=== PATIENT | male | born 2000 | race Caucasian/White ===

== ENCOUNTER 2018-11-13 07:30 | Emergency (ER) | payer MEDICAID ==
[2018-11-13] MEDS ORDERED: Albuterol-Ipratrop 3 mg / 0.5 (3 ml) UD ONE ×2 (07:43)
--- NOTE | 2018-11-13 07:49 | C.PDOC ---
History Of Present Illness 18 years old male with PMHx of asthma presents to ED for complaints of shortness of breath associated with coughing, wheezing, and subjective fever that began 4 days ago. Denies nausea, vomiting, or diarrhea. Patient also denies prior hospitalization due to asthma. Patient also reports a table fell on his wrist and knee while working 2 days ago and currently complaints of pain to left wrist and knee. Denies injuries, pain with movement, or any other complaints. Time Seen by Provider: 11/13/18 07:39 Chief Complaint (Nursing): Shortness Of Breath History Per: Patient History/Exam Limitations: no limitations Onset/Duration Of Symptoms: Days (4) Current Symptoms Are (Timing): Still Present Current Respiratory Medications: See Home Med List Associated Symptoms: Fever. denies: Chills Recent travel outside of the [place]: No Past Medical History Reviewed: Historical Data, Nursing Documentation, Vital Signs Vital Signs: Last Vital Signs Temp 98.5 F 11/13/18 07:37 Pulse 97 H 11/13/18 07:37 Resp 20 11/13/18 07:37 BP 111/75 11/13/18 07:37 Pulse Ox 100 11/13/18 07:37 - Medical History PMH: Asthma Family History: States: No Known Family Hx - Social History Hx Tobacco Use: No Hx Alcohol Use: Yes Hx Substance Use: No - Immunization History Hx Influenza Vaccination: No Review Of Systems Except As Marked, All Systems Reviewed And Found Negative. Constitutional: Positive for: Fever. Negative for: Chills Respiratory: Positive for: Cough, Shortness of Breath, Wheezing Gastrointestinal: Negative for: Nausea, Vomiting, Diarrhea Musculoskeletal: Positive for: Other (Wrist and knee pain ) Skin: Negative for: Rash Neurological: Negative for: Weakness, Numbness Physical Exam - Physical Exam Appears: Non-toxic, No Acute Distress Skin: Normal Color, Warm, Dry, No Rash Head: Atraumatic, Normacephalic Eye(s): bilateral: Normal Inspection, PERRL, EOMI Oral Mucosa: Moist Throat: No Erythema, No Exudate Neck: Normal ROM, Supple Chest: Symmetrical, No Tenderness Cardiovascular: Rhythm Regular, No Friction Rub, No Murmur Respiratory: No Rales, No Rhonchi, Wheezing (Bilateral; left greater than right ) Gastrointestinal/Abdominal: Normal Exam, Soft, No Tenderness Back: Normal Inspection, No CVA Tenderness Extremity: Normal ROM (Full ROM of wrist and knee ), No Tenderness, No Deformity, No Swelling Extremity: Bilateral: Atraumatic, Normal Color And Temperature, Normal ROM Pulses: Left Radial: Normal, Right Radial: Normal Neurological/Psych: Oriented x3, Normal Speech, Normal Motor, Normal Sensation Gait: Steady ED Course And Treatment - Laboratory Results Result Diagrams: 11/13/18 08:16 11/13/18 08:16 O2 Sat by Pulse Oximetry: 100 (RA) Pulse Ox Interpretation: Normal - Other Rad CXR X-Ray: Viewed By Me, Read By Radiologist Interpretation: Date of service: 11/13/2018. HISTORY: SOB. COMPARISON: Comparison is made with 08/24/2013. TECHNIQUE: Chest PA and lateral views. FINDINGS: LUNGS: No active pulmonary disease. PLEURA: No significant pleural effusion identified. No pneumothorax apparent. CARDIOVASCULAR: No aortic atherosclerotic calcification present. Normal cardiac size. No pulmonary vascular congestion. OSSEOUS STRUCTURES: No significant abnormalities. VISUALIZED UPPER ABDOMEN: Normal. OTHER FINDINGS: None. IMPRESSION: No active disease. Wrist X-Ray X-Ray: Viewed By Me, Read By Radiologist Interpretation: Date of service: 11/13/2018. PROCEDURE: Left Wrist Radiographs. . HISTORY: wrist injury. COMPARISON: None. TECHNIQUE: 4 v iews obtained. FINDINGS: BONES: Normal. No fracture. JOINTS: Normal. No dislocation. SOFT TISSUES: Normal. OTHER FINDINGS: None. IMPRESSION: No evidence of acute fracture or dislocation. Knee X-Ray X-Ray: Viewed By Me, Read By Radiologist Interpretation: Date of service: 11/13/2018. PROCEDURE: Left Knee Radiographs. HISTORY: Pain. COMPARISON: None. TECHNIQUE: 2 views obtained. FINDINGS: BONES: Normal. No fracture. JOINTS: Normal. No osteoarthritis. JOINT EFFUSION: None. OTHER FINDINGS: None. IMPRESSION: No evidence of acute fracture or dislocation. Critical Care Time - Critical Care Note Total Time (in mins): 35 Comments: Patient was seen immediately upon arrival. See MDM for further notes Documented critical care: time excludes all time spent performing seperately billable procedures. Medical Decision Making Medical Decision Making: Plan: * Albuterol Nebulizer treatment/peak flow * MethylPrednisolone * Blood Work * Flu A B Swab * CXR * Left Knee X-Ray * Left Wrist X-Ray Duoneb x 3 given. CXR shows ? infiltrate. Wrist and knee xray is negative. On re-exam, the patient reports improvement of symptoms. Lungs are CTA, heart is RRR, abdomen is soft, non-tender and the patient is tolerating PO well. Patient is ambulatory in the ED with steady gait. Follow up with the medical doctor within 1-2 days Disposition - Disposition Referrals: [facility] [Outside] Disposition: HOME/ ROUTINE Disposition Time: 09:48 Condition: IMPROVED Additional Instructions: Follow up with the medical doctor within 1-2 days. Return if worsened. 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 - Scribe Statement The provider has reviewed the documentation as recorded by the Cody Abdi All medical record entries made by the Cody were at my direction and personally dictated by me. I have reviewed the chart and agree that the record accurately reflects my personal performance of the history, physical exam, medical decision making, and the department course for this patient. I have also personally directed, reviewed, and agree with the discharge instructions and disposition.
[2018-11-13] MEDS: Albuterol-Ipratrop 3 mg / 0.5 (3 ml) UD IH SCH ×2 (07:55→08:03)
[2018-11-13 08:20] VITALS: RESP 18; O2SAT 100
[2018-11-13 08:22] LABS: BASO # 0.1 K/uL (0.0-0.2); BASO % 0.8 % (0.0-2.0); EOS # 0.1 K/uL (0.0-0.7); EOS % 1.3 % (0.0-4.0); HEMOGLOBIN 16.2 g/dL (12.0-18.0); LYMPH # 1.6 K/uL (1.0-4.3); LYMPH % 16.2 % (20.0-40.0); MEAN CORPUSCULAR HEMOGLOBIN 30.4 pg (27.0-31.0); MEAN CORPUSCULAR HGB CONC 33.9 g/dL (33.0-37.0); MEAN PLATELET VOLUME 10.2 fL (7.2-11.7); MONO # 0.7 K/uL (0.0-0.8); MONO % 6.8 % (0.0-10.0); NEUT # 7.4 K/uL (1.8-7.0); NEUT % 74.9 % (50.0-75.0); RBC 5.34 Mil/uL (4.40-5.90); RED CELL DISTRIBUTION WIDTH 13.9 % (11.5-14.5); WHITE BLOOD COUNT 9.8 K/uL (4.8-10.8)
[2018-11-13 08:28] LABS: MEAN CELL VOLUME 89.7 fL (80.0-94.0)
[2018-11-13 08:41] LABS: ALB/GLOB RATIO 1.8 (1.0-2.1); ALBUMIN 4.7 g/dL (3.5-5.0); AST/SGOT 23 U/L (17-59); BLOOD UREA NITROGEN 15 mg/dL (9-20); CALCIUM 9.7 mg/dl (8.6-10.4); GFR NON-AFRICAN AMERICAN > 60
[2018-11-13 08:42] LABS: ALT/SGPT < 6 U/L (21-72)
[2018-11-13 10:04] VITALS: BP 116/78; PULSE 100; TEMP 98.4
--- NOTE | 2018-11-13 10:59 | RAD ---
Date of service: 11/13/2018 PROCEDURE: Left Wrist Radiographs. HISTORY: wrist injury COMPARISON: None. TECHNIQUE: 4 views obtained. FINDINGS: BONES: Normal. No fracture. JOINTS: Normal. No dislocation. SOFT TISSUES: Normal. OTHER FINDINGS: None. IMPRESSION: No evidence of acute fracture or dislocation.
--- NOTE | 2018-11-13 11:00 | RAD ---
Date of service: 11/13/2018 HISTORY: SOB COMPARISON: Comparison is made with 08/24/2013 TECHNIQUE: Chest PA and lateral views FINDINGS: LUNGS: No active pulmonary disease. PLEURA: No significant pleural effusion identified. No pneumothorax apparent. CARDIOVASCULAR: No aortic atherosclerotic calcification present. Normal cardiac size. No pulmonary vascular congestion. OSSEOUS STRUCTURES: No significant abnormalities. VISUALIZED UPPER ABDOMEN: Normal. OTHER FINDINGS: None. IMPRESSION: No active disease.
--- NOTE | 2018-11-13 11:06 | RAD ---
Date of service: 11/13/2018 PROCEDURE: Left Knee Radiographs. HISTORY: Pain. COMPARISON: None. TECHNIQUE: 2 views obtained. FINDINGS: BONES: Normal. No fracture. JOINTS: Normal. No osteoarthritis. JOINT EFFUSION: None. OTHER FINDINGS: None. IMPRESSION: No evidence of acute fracture or dislocation.
== END 2018-11-13 10:05 | disposition home or self-care (01) ==
LOC: C.ER 07:30
DX: J45.901 Unspecified asthma with (acute) exacerbation (principal); F17.210 Nicotine dependence, cigarettes, uncomplicated; S63.502A Unspecified sprain of left wrist, initial encounter; S83.92XA Sprain of unspecified site of left knee, initial encounter; W22.8XXA Striking against or struck by other objects, initial encounter
CPT/HCPCS: 71046; 73110; 73562; 80053; 85025; 87804; 96374; 99283; J2930

== ENCOUNTER 2018-12-20 12:56 | Emergency (ER) | payer MEDICAID ==
--- NOTE | 2018-12-20 13:15 | C.PDOC ---
Time Seen by Provider: 12/20/18 13:11 Chief Complaint (Nursing): Dizziness/Lightheaded Past Medical History Vital Signs: Last Vital Signs Temp 97.9 F 12/20/18 13:05 Pulse 85 12/20/18 13:05 Resp 18 12/20/18 13:05 BP 130/65 12/20/18 13:05 Pulse Ox 95 12/20/18 13:05 Primary Care Provider: FAMILY PROVIDER,NO - Medical History PMH: Asthma - Social History Hx Tobacco Use: No Hx Alcohol Use: Yes Hx Substance Use: No - Immunization History Hx Influenza Vaccination: No ED Course And Treatment O2 Sat by Pulse Oximetry: 95 Disposition - Disposition
[2018-12-20] MEDS ORDERED: Sodium Chloride 0.9% 1,000 ML IV STA (13:36)
[2018-12-20 13:58] LABS: BASO % 0.5 % (0.0-2.0); EOS # 0.1 K/uL (0.0-0.7); HEMOGLOBIN 16.8 g/dL (12.0-18.0); LYMPH # 2.2 K/uL (1.0-4.3); LYMPH % 29.2 % (20.0-40.0); MEAN CELL VOLUME 89.5 fL (80.0-94.0); MEAN CORPUSCULAR HEMOGLOBIN 30.2 pg (27.0-31.0); MEAN CORPUSCULAR HGB CONC 33.7 g/dL (33.0-37.0); MONO # 0.4 K/uL (0.0-0.8); NEUT # 4.9 K/uL (1.8-7.0); NEUT % 64.3 % (50.0-75.0); RBC 5.57 Mil/uL (4.40-5.90); RED CELL DISTRIBUTION WIDTH 13.6 % (11.5-14.5); WHITE BLOOD COUNT 7.6 K/uL (4.8-10.8)
--- NOTE | 2018-12-20 14:02 | RAD ---
Date of service: 12/20/2018 PROCEDURE: CHEST RADIOGRAPH, 1 VIEW HISTORY: near syncope COMPARISON: 11/13/2008 FINDINGS: LUNGS: Clear. PLEURA: No pneumothorax or pleural fluid seen. CARDIOVASCULAR: No aortic atherosclerotic calcification present. Normal. OSSEOUS STRUCTURES: No significant abnormalities. VISUALIZED UPPER ABDOMEN: Normal. OTHER FINDINGS: None. IMPRESSION: No active disease. No interval acute cardiopulmonary pathology noted
[2018-12-20 14:11] LABS: ALB/GLOB RATIO 1.5 (1.0-2.1); ALBUMIN 4.8 g/dL (3.5-5.0); ALT/SGPT 17 U/L (21-72); AST/SGOT 30 U/L (17-59); BLOOD UREA NITROGEN 18 mg/dL (9-20); CALCIUM 9.8 mg/dl (8.6-10.4); GFR NON-AFRICAN AMERICAN > 60; LIPASE 37 U/L (23-300)
[2018-12-20 14:22] LABS: CK-MB 0.71 ng/mL (0.0-3.38)
--- NOTE | 2018-12-20 14:55 | CT ---
Date of service: 12/20/2018 PROCEDURE: CT HEAD WITHOUT CONTRAST. HISTORY: near syncope COMPARISON: Noncontrast head CT performed 08/24/13 TECHNIQUE: Axial computed tomography images were obtained through the head/brain without intravenous contrast. Radiation dose: Total exam DLP = 1227.14 mGy-cm. This CT exam was performed using one or more of the following dose reduction techniques: Automated exposure control, adjustment of the mA and/or kV according to patient size, and/or use of iterative reconstruction technique. FINDINGS: HEMORRHAGE: No intracranial hemorrhage. BRAIN: No mass effect or edema. Re-identified 2 cm probable arachnoid cyst along the right parietal convexity superiorly with associated scalloped inner table.The saldivar-white matter differentiation appears intact. Please note that MRI with diffusion imaging is more sensitive in the detection of acute ischemic event. VENTRICLES: No hydrocephalus. CALVARIUM: Unremarkable. PARANASAL SINUSES: Unremarkable as visualized. No significant inflammatory changes. MASTOID AIR CELLS: Unremarkable as visualized. No inflammatory changes. OTHER FINDINGS: None. IMPRESSION: No acute intracranial pathology identified. Re-identified 2 cm probable right sided arachnoid cyst as above.
[2018-12-20 16:05] VITALS: RESP 16
[2018-12-20 16:20] LABS: URINE BILIRUBIN NEGATIVE (NEGATIVE); URINE BLOOD NEGATIVE (NEGATIVE); URINE CLARITY Clear (Clear); URINE COLOR Yellow (YELLOW); URINE GLUCOSE (UA) NORMAL (Normal); URINE LEUKOCYTE ESTERASE NEG Leu/uL (Negative); URINE PROTEIN NEGATIVE (NEGATIVE); URINE UROBILINOGEN NORMAL mg/dL (0.2-1.0)
--- NOTE | 2018-12-20 16:24 | C.PDOC ---
History Of Present Illness 18 year old male presents to the ED complaining of feeling lightheaded, nauseous and dizzy today. Reports he "almost passed out". States he also felt nauseous yesterday. Denies any vomiting, diarrhea, chest pain, shortness of breath, fever, or chills. Denies any falls. Time Seen by Provider: 12/20/18 13:11 Chief Complaint (Nursing): Dizziness/Lightheaded History Per: Patient History/Exam Limitations: no limitations Onset/Duration Of Symptoms: Hrs Current Symptoms Are (Timing): Still Present Fall Associated With With Symptoms: No Past Medical History Reviewed: Historical Data, Nursing Documentation, Vital Signs Vital Signs: Last Vital Signs Temp 98.3 F 12/20/18 16:04 Pulse 74 12/20/18 16:04 Resp 16 12/20/18 16:04 BP 114/71 12/20/18 16:04 Pulse Ox 100 12/20/18 16:04 Primary Care Provider: FAMILY PROVIDER,NO - Medical History PMH: Asthma Other Surgeries: Herniorrhaphy Family History: States: No Known Family Hx - Social History Hx Tobacco Use: No Hx Alcohol Use: Yes Hx Substance Use: No - Immunization History Hx Influenza Vaccination: No Review Of Systems Except As Marked, All Systems Reviewed And Found Negative. Constitutional: Negative for: Fever, Chills Cardiovascular: Positive for: Light Headedness. Negative for: Chest Pain Respiratory: Negative for: Cough Gastrointestinal: Positive for: Nausea. Negative for: Vomiting, Abdominal Pain, Diarrhea Neurological: Positive for: Dizziness Physical Exam - Physical Exam Appears: Non-toxic, No Acute Distress Skin: Warm, Dry, No Rash Head: Normacephalic Eye(s): bilateral: Normal Inspection, PERRL, EOMI Neck: Supple Chest: Symmetrical Cardiovascular: Rhythm Regular Respiratory: Normal Breath Sounds, No Rales, No Rhonchi, No Wheezing Gastrointestinal/Abdominal: Soft, No Tenderness Neurological/Psych: Oriented x3, Normal Speech Gait: Steady ED Course And Treatment - Laboratory Results Result Diagrams: 12/20/18 13:53 12/20/18 13:53 Lab Results: Total Bilirubin 0.4 mg/dL (0.2-1.3) 12/20/18 13:53 AST 30 U/L (17-59) 12/20/18 13:53 ALT 17 U/L (21-72) L D 12/20/18 13:53 Alkaline Phosphatase 123 U/L (38-126) 12/20/18 13:53 Total Protein 8.0 g/dL (6.3-8.3) 12/20/18 13:53 Albumin 4.8 g/dL (3.5-5.0) 12/20/18 13:53 Globulin 3.2 gm/dL (2.2-3.9) 12/20/18 13:53 Albumin/Globulin Ratio 1.5 (1.0-2.1) 12/20/18 13:53 Lipase 37 U/L (23-300) 12/20/18 13:53 ECG: Interpreted By Me, Viewed By Me ECG Interpretation: No Acute Changes Rate From EC O2 Sat by Pulse Oximetry: 100 (RA) Pulse Ox Interpretation: Normal - Other Rad CXR X-Ray: Viewed By Me, Read By Radiologist Interpretation: Accession No. : [id number]. Patient Name / ID : STELLA Sung / [id number]. Exam Date : 12/20/2018 13:42:02 ( Approved ). Study Comment : Sex / Age : M / 18Y. Creator : Brenda Peng. Dictator : Brenda Peng. Utilization Engineer : [employer] Power Plant Operator : Brenda Ramirez. Approver2 : Report Date : 12/20/2018 13:58:31. My Comment : * . Date of service: 12/20/2018. PROCEDURE: CHEST RADIOGRAPH, 1 VIEW. HISTORY: near syncope. COMPARISON: 11/13/2008. FINDINGS: LUNGS: Clear. PLEURA: No pneumothorax or pleural fluid seen. CARDIOVASCULAR: No aortic atherosclerotic calcification present. Normal. OSSEOUS STRUCTURES: No significant abnormalities. VISUALIZED UPPER ABDOMEN: Normal. OTHER FINDINGS: None. IMPRESSION: No active disease. No interval acute cardiopulmonary pathology noted - CT Scan/US CT head Other Rad Studies (CT/US): Read By Radiologist, Radiology Report Reviewed CT/US Interpretation: Accession No. : [id number]. Patient Name / ID : STELLA FELIPE / [id number]. Exam Date : 12/20/2018 14:18:05 ( Approved ). Study Comment : Sex / Age : M / 18Y. Creator : Janie Greenwood MD. Dictator : Janie Greenwood MD. Utilization Engineer : [employer] Capt[employer] Power Plant Operator : Janie Greenwood MD. Approver2 : Report Date : 12/20/2018 14:51:38. My Comment : . Date of service: 12/20/2018. PROCEDURE: CT HEAD WITHOUT CONTRAST. HISTORY: near syncope. COMPARISON: Noncontrast head CT performed 08/24/13. TECHNIQUE: Axial computed tomography images were obtained through the head/brain without intravenous contrast. Radiation dose: Total exam DLP = 1227.14 mGy-cm. This CT exam was performed using one or more of the following dose reduction techniques: Automated exposure control, adjustment of the mA and/or kV according to patient size, and/or use of iterative reconstruction technique. FINDINGS: HEMORRHAGE: No intracranial hemorrhage. BRAIN: No mass effect or edema. Re-identified 2 cm probable arachnoid cyst along the right parietal convexity superiorly with associated scalloped inner table.The saldivar- white matter differentiation appears intact. Please note that MRI with diffusion imaging is more sensitive in the detection of acute ischemic event. VENTRICLES: No hydrocephalus. CALVARIUM: Unremarkable. PARANASAL SINUSES: Unremarkable as visualized. No significant inflammatory changes. MASTOID AIR CELLS: Unremarkable as visualized. No inflammatory changes. OTHER FINDINGS: None. IMPRESSION: No acute intracranial pathology identified. Re-identified 2 cm probable right sided arachnoid cyst as above. Progress Note: EKG and CXR ordered. Blood and urine collected and sent to the lab for analysis. Patient treated with IV fluids. On re-evaluation patient feels better, tolerates po, ambulatory with no dizziness. Patient is stable to be d/c home with PMD/Clinic follow up. Disposition - Disposition Disposition: HOME/ ROUTINE Disposition Time: 17:16 Condition: STABLE Additional Instructions: FOLLOW UP WITH PMD WITHIN 1-2 DAYS. RETURN TO ED IF FEEL WORSE. 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 - Scribe Statement The provider has reviewed the documentation as recorded by the Scribe Kasandra Ramirez All medical record entries made by the Cody were at my direction and persona lly dictated by me. I have reviewed the chart and agree that the record accurately reflects my personal performance of the history, physical exam, medical decision making, and the department course for this patient. I have also personally directed, reviewed, and agree with the discharge instructions and disposition.
[2018-12-20 16:33] LABS: BARBITURATES, UR NEGATIVE (NEGATIVE); BENZODIAZEPINES, UR NEGATIVE (NEGATIVE); OPIATES, UR NEGATIVE (NEGATIVE); PHENCYCLIDINE, UR NEGATIVE (NEGATIVE)
[2018-12-20 18:05] VITALS: BP 111/68; PULSE 70; TEMP 98.2
[2018-12-20 18:19] VITALS: O2SAT 100
--- NOTE | 2018-12-21 11:50 | CARD ---
APPROVED REPORT Date of service: 12/20/2018 EKG Measurement Heart [id number] <Conclusion> Normal sinus rhythm Normal ECG
== END 2018-12-20 18:05 | disposition home or self-care (01) ==
LOC: C.ER 12:56
DX: R42 Dizziness and giddiness (principal)
CPT/HCPCS: 70450; 71045; 80053; 80324; 80345; 80346; 80349; 80353; 80358; 80361; 81001; 82550; 82553; 82948; 83690; 83992; 85025; 93005; 96360; 99285; J7030